=== PATIENT | male | born 1990 | race Caucasian/White ===

== ENCOUNTER 2021-03-11 15:38 | Emergency (ER) | payer SELFPAY ==
[~2021-03-11] VITALS: Ht 170.2 cm; Wt 100.0 kg
[2021-03-11] MEDS ORDERED: LIDOCAINE HCL 1% 20ML VIAL (Pyxis) INJ INFIL ONE (16:15)
[2021-03-11] MEDS ORDERED: BACITRACIN ZINC OINT UDPKT TOP ONE (16:15)
[2021-03-11] MEDS ORDERED: TOPUD MT (17:36)
[2021-03-11 18:24] VITALS: BP 118/70
== END 2021-03-11 18:23 | disposition home or self-care (01) ==
LOC: ER 15:38
DX: S61.217A Laceration without foreign body of left little finger without damage to nail, initial encounter (principal); X58.XXXA Exposure to other specified factors, initial encounter; Y93.89 Activity, other specified; Y92.89 Other specified places as the place of occurrence of the external cause; Y99.8 Other external cause status
CPT/HCPCS: 12002; 73130; 99283; J3490; Z7610